=== PATIENT | female | born 1965 | race Caucasian/White ===

== ENCOUNTER 2017-08-24 15:27 | Observation (INO) | payer OTHER ==
[~2017-08-24] VITALS: Ht 162.6 cm; Wt 62.2 kg
[2017-08-24 15:33] VITALS: BP 175/86; PULSE 70; RESP 18; TEMP 98; O2SAT 100
[2017-08-24 16:21] LABS: BICARBONATE 29.1 MEQ/L (21.0-32.0); BLOOD UREA NITROGEN 15 MG/DL (7-18); CHLORIDE 104 MEQ/L (98-107); CREATININE 0.96 MG/DL (0.50-1.00); GLOMERULAR FILTRATION RATE 61 ML/MIN (>89); GLUCOSE,RANDOM 169 MG/DL (74-106); SODIUM (NA) 141 MEQ/L (136-145)
[2017-08-24 16:24] LABS: TROPONIN I LESS THAN 0.02 NG/ML (0.02-0.05)
[2017-08-24 16:28] LABS: AUTOMATED NEUTROPHIL # 5.9 TH/MM3 (1.8-7.7); BASOPHIL # 0.1 TH/MM3 (0-0.2); BASOPHIL % 0.9 % (0.0-2.0); EOSINOPHIL # 0.1 TH/MM3 (0-0.4); EOSINOPHIL % 1.5 % (0.0-4.0); HEMOGLOBIN 14.4 GM/DL (11.6-15.3); LYMPH % 25.6 % (9.0-44.0); LYMPHOCYTE # 2.2 TH/MM3 (1.0-4.8); MEAN CELL VOLUME 91.3 FL (80.0-100.0); MEAN CORPUSCULAR HEMOGLOBIN 30.6 PG (27.0-34.0); MEAN CORPUSCULAR HGB CONC 33.6 % (32.0-36.0); MEAN PLATELET VOLUME 8.4 FL (7.0-11.0); MONO % 4.6 % (0.0-8.0); MONOCYTE # 0.4 TH/MM3 (0-0.9); NEUT % 67.4 % (16.0-70.0); PLATELET COUNT 266 TH/MM3 (150-450); RED BLOOD COUNT 4.71 MIL/MM3 (4.00-5.30); WHITE BLOOD COUNT 8.8 TH/MM3 (4.0-11.0)
[2017-08-24 16:33] VITALS: PULSE 65; RESP 16; O2SAT 100
[2017-08-24] MEDS ORDERED: POTASSIUM CHLORIDE 20 MEQ CONTROLLED RELEASE TAB PO ONE (16:45)
--- NOTE | 2017-08-24 16:48 | PD ---
HPI Chief Complaint: Chest Pain Time Seen by Provider: 15:55 Travel History International Travel<30 days: No Contact w/Intl Traveler<30days: No Traveled to known affect area: No History of Present Illness HPI Patient presents to the emergency department complaining of chest pain. States that on Monday she woke up and had left back pain and Monday went to her chest. States that yesterday started getting worse. Reporting feeling dizzy with movement because of the pain. She took 2 Advil on yesterday and this morning also use hot/cold pack, with some improvement today. States that she still has chest pain. Pain is described as being on the left side, moving from back to front, nonradiating, movement makes pain worse, better with rest, constant, states that her back always hurts on the right side but now it was on the left. She denies fever, chills, nausea, vomiting, cough, recent travel, lower extremity edema, but reports shortness of breath with pain. PFSH Past Medical History Cardiovascular Problems: Yes High Cholesterol: Yes Diminished Hearing: No Hypertension: Yes Tetanus Vaccination: Unknown ?: Not LMP: 08/15/17 Past Surgical History Surgical History: No Previous Surgery Social History Alcohol Use: No Tobacco Use: Yes Substance Use: No Allergies-Medications (Allergen,Severity, Reaction): Coded Allergies: No Known Allergies (Unverified , 08/24/17) Review of Systems Except as stated in HPI: all other systems reviewed are Neg Physical Exam Narrative GENERAL: No acute distress. SKIN: Focused skin assessment warm/dry. HEAD: Atraumatic. Normocephalic. EYES: Pupils equal and round. No scleral icterus. No injection or drainage. ENT: No nasal bleeding or discharge. Mucous membranes pink and moist. NECK: Trachea midline. No JVD. CARDIOVASCULAR: Regular rate and rhythm. Positive murmur. 2+ R/DP pulses bilat RESPIRATORY: No accessory muscle use. Clear to auscultation. Breath sounds equal bilaterally. GASTROINTESTINAL: Abdomen soft, non-tender, nondistended. Hepatic and splenic margins not palpable. MUSCULOSKELETAL: No obvious deformities. No clubbing. No cyanosis. No edema. NEUROLOGICAL: Awake and alert. No obvious cranial nerve deficits. Motor grossly within normal limits. Normal speech. PSYCHIATRIC: Appropriate mood and affect; insight and judgment normal. Data Data Last Documented VS Vital Signs Date Time Temp Pulse Resp B/P (MAP) Pulse Ox O2 Delivery O2 Flow Rate FiO2 08/24/17 18:38 65 16 149/86 (107) 100 Room Air 08/24/17 15:33 98.0 Orders Orders Electrocardiogram (08/24/17 15:36) Complete Blood Count With Diff (08/24/17 15:36) Basic Metabolic Panel (Bmp) (08/24/17 15:36) Ckmb (Isoenzyme) Profile (08/24/17 15:36) Troponin I (08/24/17 15:36) Chest, Pa & Lat (08/24/17 15:36) CKMB (08/24/17 15:49) CKMB% (08/24/17 15:49) Potassium Chloride (Kcl) (08/24/17 16:45) Aspirin (Aspirin) (08/24/17 17:30) Electrocardiogram (08/24/17 19:00) Troponin I (08/24/17 19:00) Cyclobenzaprine (Flexeril) (08/24/17 18:00) Labs Laboratory Tests Test 08/24/17 15:49 White Blood Count 8.8 TH/MM3 Red Blood Count 4.71 MIL/MM3 Hemoglobin 14.4 GM/DL Hematocrit 43.0 % Mean Corpuscular Volume 91.3 FL Mean Corpuscular Hemoglobin 30.6 PG Mean Corpuscular Hemoglobin Concent 33.6 % Red Cell Distribution Width 13.0 % Platelet Count 266 TH/MM3 Mean Platelet Volume 8.4 FL Neutrophils (%) (Auto) 67.4 % Lymphocytes (%) (Auto) 25.6 % Monocytes (%) (Auto) 4.6 % Eosinophils (%) (Auto) 1.5 % Basophils (%) (Auto) 0.9 % Neutrophils # (Auto) 5.9 TH/MM3 Lymphocytes # (Auto) 2.2 TH/MM3 Monocytes # (Auto) 0.4 TH/MM3 Eosinophils # (Auto) 0.1 TH/MM3 Basophils # (Auto) 0.1 TH/MM3 CBC Comment DIFF FINAL Differential Comment Blood Urea Nitrogen 15 MG/DL Creatinine 0.96 MG/DL Random Glucose 169 MG/DL Calcium Level 9.0 MG/DL Sodium Level 141 MEQ/L Potassium Level 3.3 MEQ/L Chloride Level 104 MEQ/L Carbon Dioxide Level 29.1 MEQ/L Anion Gap 8 MEQ/L Estimat Glomerular Filtration Rate 61 ML/MIN Total Creatine Kinase 153 U/L Creatine Kinase MB 0.6 NG/ML Troponin I LESS THAN 0.02 NG/ML MDM Medical Decision Making Medical Screen Exam Complete: Yes Emergency Medical Condition: Yes Interpretation(s) EKG: Sinus rhythm, rate 64, Labs: Potassium decreased and glucose increase; cardiac enzymes negative Last Impressions Chest X-Ray 08/24/17 1536 Signed Impressions: Service Date/Time: August 15:54 - CONCLUSION: No acute disease. Riki Cagle MD Differential Diagnosis ACS, musculoskeletal chest pain, costochondritis, referred back pain Narrative Course Patient presents to the emergency department with constant chest pain and left back pain since Monday. She is afebrile and slightly hypertensive at 175/86. Will check EKG, chest x-ray, labs. Patient given 40 mEQ potassium p.o. 1730: Patient without chest pain. Ordered 2nd troponin and ECG at 1900 (3 hrs from first). Also will give patient ASA 325mg po. Bilat UE blood pressures: R arm 175/94 and L arm 159/94. 1751: Patient c/o back spasms, will give flexeril 5mg po. 1900: Patient signed out to Dr. Rodriguez and has repeat troponin and ECG at 1900. Final dispo per Dr. Rodriguez. Diagnosis Primary Impression: Chest pain Additional Impression: Hypokalemia Keysha Hatch MD August 24, 2017 16:48
--- NOTE | 2017-08-24 17:08 | RADRPT ---
EXAM DATE/TIME: 08/24/2017 15:54 [facility] COMPARISON: No previous studies available for comparison. INDICATIONS : Chest pain, mid center chest MEDICAL HISTORY : Hypertension. SURGICAL HISTORY : None. ENCOUNTER: Initial ACUITY: 4 - 6 days PAIN SCORE: 8/10 LOCATION: chest FINDINGS: PA and lateral views of the chest demonstrate the lungs to be symmetrically aerated without evidence of mass, infiltrate or effusion. The cardiomediastinal contours are unremarkable. Osseous structure s are intact. CONCLUSION: No acute disease. Riki Cagle MD on August 24, 2017 at 17:06 Board Certified Radiologist. This report was verified electronically.
[2017-08-24] MEDS ORDERED: ASPIRIN 325 MG TAB PO ONE (17:30)
[2017-08-24] MEDS ORDERED: CYCLOBENZAPRINE HCL 10 MG TAB PO ONE (18:00)
[2017-08-24 18:38] VITALS: BP 149/86; PULSE 65; RESP 16; O2SAT 100
--- NOTE | 2017-08-24 19:02 | PD ---
Physical Exam Date Seen by Provider: August 24, 2017 Time Seen by Provider: 19:01 Narrative Accepted transfer of care from Dr. Hatch GENERAL: Well-developed well-nourished female in no acute distress no respiratory distress SKIN: Warm and dry. HEAD: Normocephalic. EYES: No scleral icterus. No injection or drainage. NECK: Supple, trachea midline. No JVD or lymphadenopathy. CARDIOVASCULAR: Regular rate and rhythm without murmurs, gallops, or rubs. RESPIRATORY: Breath sounds equal bilaterally. No accessory muscle use. Data Data Last Documented VS Vital Signs Date Time Temp Pulse Resp B/P (MAP) Pulse Ox O2 Delivery O2 Flow Rate FiO2 08/24/17 18:38 65 16 149/86 (107) 100 Room Air 08/24/17 15:33 98.0 Orders Orders Electrocardiogram (08/24/17 15:36) Complete Blood Count With Diff (08/24/17 15:36) Basic Metabolic Panel (Bmp) (08/24/17 15:36) Ckmb (Isoenzyme) Profile (08/24/17 15:36) Troponin I (08/24/17 15:36) Chest, Pa & Lat (08/24/17 15:36) CKMB (08/24/17 15:49) CKMB% (08/24/17 15:49) Potassium Chloride (Kcl) (08/24/17 16:45) Aspirin (Aspirin) (08/24/17 17:30) Electrocardiogram (08/24/17 19:00) Troponin I (08/24/17 19:00) Cyclobenzaprine (Flexeril) (08/24/17 18:00) D-Dimer (08/24/17 21:09) Admit Order (Ed Use Only) (08/24/17 ) High Lift Operator / Telemetry DARIAN.Q8H (08/24/17 22:05) Diet Heart Healthy (08/25/17 Breakfast) Activity Oob With Assistance (08/24/17 22:05) Notify Dr: Other (08/24/17 22:05) Activity Bed Rest With Brp (08/24/17 22:05) Vital Signs (Adult) Q4H (08/24/17 22:05) Cardiac Rhythm .As Directed (08/24/17 22:05) Notify Dr: Other .PRN (08/24/17 22:05) Notify Parameters (08/24/17 22:05) Resp Oxygen Nasal Cannula (08/24/17 ) Ckmb (Isoenzyme) Profile (08/24/17 23:05) Troponin I (08/24/17 23:05) Electrocardiogram (08/24/17 23:05) ^ Obtain (08/24/17 22:05) Sodium Chloride 0.9% Flush (Ns Flush) (08/24/17 22:15) Sodium Chloride 0.9% Flush (Ns Flush) (08/25/17 09:00) Ondansetron Inj (Zofran Inj) (08/24/17 22:15) Nitroglycerin Sl (Nitrostat Sl) (08/24/17 22:15) Aspirin (Aspirin) (08/25/17 09:00) Alprazolam (Xanax) (08/24/17 22:15) High Lift Operator / Telemetry DARIAN.Q8H (08/24/17 22:05) Labs Laboratory Tests Test 08/24/17 15:49 08/24/17 20:10 08/24/17 21:20 White Blood Count 8.8 TH/MM3 Red Blood Count 4.71 MIL/MM3 Hemoglobin 14.4 GM/DL Hematocrit 43.0 % Mean Corpuscular Volume 91.3 FL Mean Corpuscular Hemoglobin 30.6 PG Mean Corpuscular Hemoglobin Concent 33.6 % Red Cell Distribution Width 13.0 % Platelet Count 266 TH/MM3 Mean Platelet Volume 8.4 FL Neutrophils (%) (Auto) 67.4 % Lymphocytes (%) (Auto) 25.6 % Monocytes (%) (Auto) 4.6 % Eosinophils (%) (Auto) 1.5 % Basophils (%) (Auto) 0.9 % Neutrophils # (Auto) 5.9 TH/MM3 Lymphocytes # (Auto) 2.2 TH/MM3 Monocytes # (Auto) 0.4 TH/MM3 Eosinophils # (Auto) 0.1 TH/MM3 Basophils # (Auto) 0.1 TH/MM3 CBC Comment DIFF FINAL Differential Comment Blood Urea Nitrogen 15 MG/DL Creatinine 0.96 MG/DL Random Glucose 169 MG/DL Calcium Level 9.0 MG/DL Sodium Level 141 MEQ/L Potassium Level 3.3 MEQ/L Chloride Level 104 MEQ/L Carbon Dioxide Level 29.1 MEQ/L Anion Gap 8 MEQ/L Estimat Glomerular Filtration Rate 61 ML/MIN Total Creatine Kinase 153 U/L Creatine Kinase MB 0.6 NG/ML Troponin I LESS THAN 0.02 NG/ML LESS THAN 0.02 NG/ML [facility] Medical Record Reviewed: Yes Supervised Visit with MARK: No Interpretation(s) Troponin I: Less than 0.02, not elevated Troponin I #2: Less than 0.02, not elevated EKG normal sinus rhythm rate 59 nonspecific T-wave septally no acute ST elevation Last Impressions Chest X-Ray 08/24/17 1536 Signed Impressions: Service Date/Time: August 15:54 - CONCLUSION: No acute disease. Riki Cagle MD CBC & BMP Diagram 08/24/17 15:49 Calcium Level 9.0 Vital Signs Date Time Temp Pulse Resp B/P (MAP) Pulse Ox O2 Delivery O2 Flow Rate FiO2 08/24/17 18:38 65 16 149/86 (107) 100 Room Air 08/24/17 16:33 65 16 100 Room Air 08/24/17 16:33 63 100 08/24/17 15:33 98.0 70 18 175/86 (115) 100 Differential Diagnosis Accepted transfer of care from Dr. Maciel; please refer to her dictation Narrative Course Accepted transfer of care from Dr. Maciel; for follow-up of pending labs and patient disposition Risk factor for chest pain/CAD: Female age 52 history of hypertension history of dyslipidemia and strong family history of CAD/ME Second set of cardiac enzymes troponin I less than 0.02, and evaluated EKG shows no acute ST elevation injury pattern Patient's case discussed in detail and her labs with the patient desirous of observation to chest pain center as prior to moving from the [facility] due to her strong family history of CAD patient had been undergoing stress test annually and has not had a stress test since 2016. Therefore will place as observation patient to chest pain center. Diagnosis Primary Impression: Chest pain Additional Impression: Hypokalemia Yvonne Rodriguez MD August 24, 2017 19:01
[2017-08-24] MEDS ORDERED: SODIUM CHLORIDE 0.9% FLUSH 10 ML FLUSH IV FLUSH PRN (22:15)
[2017-08-24] MEDS ORDERED: NITROGLYCERIN 0.4 MG SL 25 TABS/BTL SL PRN (22:15)
[2017-08-24] MEDS ORDERED: ONDANSETRON HCL 4 MG/2 ML VIAL IV PUSH PRN (22:15)
[2017-08-24] MEDS ORDERED: ALPRAZolam 0.25 MG TAB PO PRN (22:15)
[2017-08-24 22:53] VITALS: BP_SYST 152; BP_SYST 160; BP_DIAS 94; PULSE 55; RESP 16; TEMP 97.9; O2SAT 99
[2017-08-25] VITALS (7 sets, daily range): BP systolic 130–157; BP diastolic 86–97; PULSE 53–66; RESP 16–18; TEMP 97.6–98.7; O2SAT 97–98
[2017-08-25 00:39] LABS: TROPONIN I LESS THAN 0.02 NG/ML (0.02-0.05)
--- NOTE | 2017-08-25 07:26 | HHI.HP ---
HPI Primary Care Physician Sb Jenkins MD Chief Complaint Chest pain History of Present Illness 52-year-old female with history of hypertension hyperlipidemia presents emergency room for further evaluation of chest pain. Onset 2 weeks. Monday discomfort became worse. Location mid back with radiation to substernal chest area. Severity has been mild to moderate. Duration constant. No associated symptoms of nausea, vomiting, dyspnea, or diaphoresis. Precipitating factors movement and taking deep breaths. Since Monday alternating between placing ice and heat to affected areas and taking Advil reports some relief. Due to worsening discomfort and prolonged nature of discomfort, came to ER for further evaluation of chest pain. No recent injury or trauma. Review of Systems General: No fatigue,weakness, fever, chills, or recent illness. HEENT: No THAKUR, no vision changes CV: Continues to have chest discomfort as stated above. No palpitations, intermittent leg pain, dizziness RESP: No SOB, cough, wheeze, or recent URI. GI: No nausea, vomiting, bowel changes, diarrhea, constipation, pain, or distention. No change in appetite, no unintentional weight gain or weight loss. : No dysuria, urgency, frequency EXT: No lower leg edema, no paraesthesias MS: No discomfort, injury, or change in ROM NEURO: No dizziness, difficulty with balance, LOC, or motor/sensory deficits PSYCH: No anxiety, depression SKIN: No rashes, no concerning lesions Past Family Social History Allergies: Coded Allergies: No Known Allergies (Unverified , 08/24/17) Past Medical History Hypertension, hyperlipidemia Reported Medications Reports taking blood pressure and hyperlipidemia medications, names unknown. Active Ordered Medications Current Medications Medications (Trade) Dose Ordered Sig/Sue Route Start Time Stop Time Status Last Admin (NS Flush) 2 ml UNSCH PRN IV FLUSH 08/24/17 22:15 (NS Flush) 2 ml BID IV FLUSH 08/25/17 09:00 (Zofran Inj) 4 mg Q6H PRN IV PUSH 08/24/17 22:15 (Nitrostat Sl) 0.4 mg Q5M PRN SL 08/24/17 22:15 (Aspirin) 325 mg DAILY PO 08/25/17 09:00 (Xanax) 0.25 mg Q8H PRN PO 08/24/17 22:15 Family History Noncontributory for early onset cardiovascular disease. Social History Known hypertension hyperlipidemia. No known coronary artery disease or diabetes. Lifelong non-smoker. Denies any alcohol use. . Works an office setting. 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 Past cardiac testing None Physical Exam Vital Signs Vital Signs Date Time Temp Pulse Resp B/P (MAP) Pulse Ox O2 Delivery O2 Flow Rate FiO2 08/25/17 07:02 97.8 53 18 157/88 (111) 97 08/25/17 05:55 21 08/25/17 04:16 97.6 58 16 153/97 (115) 97 08/25/17 04:00 57 08/25/17 01:00 97.6 54 16 157/86 (109) 98 08/24/17 22:53 97.9 55 16 152/94 (113) 99 08/24/17 18:38 65 16 149/86 (107) 100 Room Air 08/24/17 16:33 65 16 100 Room Air 08/24/17 16:33 63 100 08/24/17 15:33 98.0 70 18 175/86 (115) 100 Physical Exam GENERAL: Alert WN, WD, NAD, pleasant, female HEAD: NC, AT EYES: Sclera clear, conjunctiva without injection, pupils equal and round ENT: Mucous membranes pink and moist NECK: Supple, no masses, trachea midline CV: RRR, without murmur, rub, gallop, no JVD, S1-S2 no S3-S4. RESP: Clear lungs throughout bilateral, no crackles, wheeze, rhonchi, symmetrical chest rise, nonlabored, able to speak in full sentences ABD: Soft, NT, ND, no masses, positive bowel tones EXT: Pulses +2x4, no dependent edema MS: Normal tone x4 extremities, nontender, no obvious deformities, full range of motion NEURO: CN II through CN XII grossly intact, motor strength 5/5 PSYCH: A+O x3, pleasant affect, appropriate speech, mood, insight and judgment SKIN: Normal turgor, normal texture, no lesions, no rashes, brisk cap refill Laboratory Laboratory Tests Test 08/24/17 15:49 08/24/17 20:10 08/24/17 21:20 08/24/17 23:40 White Blood Count 8.8 Red Blood Count 4.71 Hemoglobin 14.4 Hematocrit 43.0 Mean Corpuscular Volume 91.3 Mean Corpuscular Hemoglobin 30.6 Mean Corpuscular Hemoglobin Concent 33.6 Red Cell Distribution Width 13.0 Platelet Count 266 Mean Platelet Volume 8.4 Neutrophils (%) (Auto) 67.4 Lymphocytes (%) (Auto) 25.6 Monocytes (%) (Auto) 4.6 Eosinophils (%) (Auto) 1.5 Basophils (%) (Auto) 0.9 Neutrophils # (Auto) 5.9 Lymphocytes # (Auto) 2.2 Monocytes # (Auto) 0.4 Eosinophils # (Auto) 0.1 Basophils # (Auto) 0.1 CBC Comment DIFF FINAL Differential Comment Blood Urea Nitrogen 15 Creatinine 0.96 Random Glucose 169 Calcium Level 9.0 Sodium Level 141 Potassium Level 3.3 Chloride Level 104 Carbon Dioxide Level 29.1 Anion Gap 8 Estimat Glomerular Filtration Rate 61 Total Creatine Kinase 153 162 Creatine Kinase MB 0.6 0.7 Troponin I LESS THAN 0.02 LESS THAN 0.02 LESS THAN 0.02 D-Dimer Quantitative (PE/DVT) 0.29 Result Diagram: 08/24/17 1549 08/24/17 1549 Imaging Last 48 hours Impressions Chest X-Ray 08/24/17 1536 Signed Impressions: Service Date/Time: August 15:54 - CONCLUSION: No acute disease. Riki Cagle MD Course EKG NSB, no st t segment changes Caprini VTE Risk Assessment Caprini VTE Risk Assessment: No/Low Risk (score <= 1) Caprini Risk Assessment Model Point Value = 1 Point Value = 2 Point Value = 3 Point Value = 5 Age 41-60 Minor surgery BMI > 25 kg/m2 Swollen legs Varicose veins or History of unexplained or recurrent spontaneous Oral contraceptives or hormone replacement Sepsis (< 1 month) Serious lung disease, including pneumonia (< 1 month) Abnormal pulmonary function Acute myocardial infarction Congestive heart failure (< 1 month) History of inflammatory bowel disease Medical patient at bed rest Age 61-74 Arthroscopic surgery Major open surgery (> 45 min) Laparoscopic surgery (> 45 min) Malignancy Confined to bed (> 72 hours) Immobilizing plaster cast Central venous access Age >= 75 History of VTE Family history of VTE Factor V Leiden Prothrombin [id number] Lupus anticoagulant Anticardiolipin antibodies Elevated serum homocysteine Heparin-induced thrombocytopenia Other congenital or acquired thrombophilia Stroke (< 1 month) Elective arthroplasty Hip, pelvis, or leg fracture Acute spinal cord injury (< 1 month) Prophylaxis Regimen Total Risk Factor Score Risk Level Prophylaxis Regimen 0-1 Low Early ambulation 2 Moderate Order ONE of the following: *Sequential Compression Device (SCD) *Heparin 5000 units SQ BID 3-4 Higher Order ONE of the following medications: *Heparin 5000 units SQ TID *Enoxaparin/Lovenox 40 mg SQ daily (WT < 150 kg, CrCl > 30 mL/min) *Enoxaparin/Lovenox 30 mg SQ daily (WT < 150 kg, CrCl > 10-29 mL/min) *Enoxaparin/Lovenox 30 mg SQ BID (WT < 150 kg, CrCl > 30 mL/min) AND/OR *Sequential Compression Device (SCD) 5 or more Highest Order ONE of the following medications: *Heparin 5000 units SQ TID (Preferred with Epidurals) *Enoxaparin/Lovenox 40 mg SQ daily (WT < 150 kg, CrCl > 30 mL/min) *Enoxaparin/Lovenox 30 mg SQ daily (WT < 150 kg, CrCl > 10-29 mL/min) *Enoxaparin/Lovenox 30 mg SQ BID (WT < 150 kg, CrCl > 30 mL/min) AND *Sequential Compression Device (SCD) Assessment and Plan Assessment and Plan Musculoskeletal chest wall pain-no chest pain center. Ruled out with 3 sets of EKGs, cardiac enzymes, monitor on telemetry overnight. Seen and evaluated by Dr. Cesar Webster. With exercise stress test. If unremarkable, plans will be to discharge home with follow-up with PCP. Encouraged continued use to work using warm heat to affected area and [id number] NSAIDs such as Aleve or Motrin. Verbalized understanding and agreeable to plan of care. Upon discharge she has been instructed to continue her antihypertensive and statin therapy, medications not updated in EMR. Namita Sandoval August 25, 2017 07:26
[2017-08-25] MEDS ORDERED: NITROGLYCERIN 0.4 MG SL 25 TABS/BTL SL PRN (08:30)
[2017-08-25] MEDS ORDERED: SODIUM CHLORIDE 0.9% FLUSH 10 ML FLUSH IV FLUSH PRN (08:30)
[2017-08-25] MEDS ORDERED: ACETAMINOPHEN 500 MG CPLT PO PRN (08:30)
[2017-08-25] MEDS ORDERED: ASPIRIN 325 MG TAB PO SCH ×2 (09:00)
[2017-08-25] MEDS ORDERED: SODIUM CHLORIDE 0.9% FLUSH 10 ML FLUSH IV FLUSH SCH ×2 (09:00)
--- NOTE | 2017-08-25 10:16 | HHI.DCPOC ---
Discharge Care Plan Diagnosis: (1) Musculoskeletal chest pain Goals to Promote Your Health * To prevent worsening of your condition and complications * To maintain your health at the optimal level Directions to Meet Your Goals Take your medications as prescribed Follow your dietary instruction Follow activity as directed Keep your appointments as scheduled Take your immunizations and boosters as scheduled If your symptoms worsen call your PCP, if no PCP go to Urgent Care Center or Emergency Room Smoking is Dangerous to Your Health. Avoid second hand smoke Call the 24-hour hour crisis hotline for domestic abuse at Namita Sandoval August 25, 2017 10:16
[2017-08-25] MEDS ORDERED: IBUP-232 PO (10:17)
[2017-08-25] MEDS ORDERED: CYCL5TAB PO (10:26)
--- NOTE | 2017-08-25 14:05 | EKG ---
Date Performed: 08/24/2017 Time Performed: 23:11:23 PTAGE: 52 years EKG: SINUS BRADYCARDIA PREVIOUS TRACING : 08/24/2017 20.06 Since previous tracing, no significant change noted DOCTOR: Cesar Webster Interpretating Date/Time 08/25/2017 14:04:23
--- NOTE | 2017-08-25 14:08 | TR ---
Date Performed: 08/25/2017 Time Performed: 08:44:19 DOCTOR: Cesar Webster DRUG LIST: CLINICAL HISTORY: REASON FOR TEST: Chest pain REASON FOR ENDING: OBSERVATION: CONCLUSION: Gerald protocol completed. Stopped sec to exceeding target heart rate and leg fatigue . Maximum WT=008 Target HR Achieved=91.0% Maximum JK=163/82 Total Exercise Time=8:02. No reprod chest discomfort. No ectopy. Inferior J point depression with upsloping st segments. Normal bp response. G ood exercise tolerance. Recovery quick and unremarkable. COMMENTS: Patient exercised using the Gerald protocol. No electrocardiographic changes were seen to suggest ischemia. Hemodynamic response to exercise was normal. No significant arrhythmia was prese nt.
--- NOTE | 2017-08-26 08:37 | EKG ---
Date Performed: 08/24/2017 Time Performed: 20:06:27 PTAGE: 52 years EKG: SINUS BRADYCARDIA BORDERLINE ECG PREVIOUS TRACING : 08/24/2017 15.41 DOCTOR: Alexander Kingsley Interpretating Date/Time 08/26/2017 08:34:08
--- NOTE | 2017-08-26 08:42 | EKG ---
Date Performed: 08/24/2017 Time Performed: 15:41:32 PTAGE: 52 years EKG: Sinus rhythm NORMAL ECG NO PREVIOUS TRACING DOCTOR: Alexander Kingsley Interpretating Date/Time 08/26/2017 08:39:46
== END 2017-08-25 12:17 | disposition home or self-care (01) ==
LOC: NEPC 15:27 → NEDA 22:08 → NEPFCDU 22:46
DX: R07.89 Other chest pain (principal); M62.830 Muscle spasm of back; E87.6 Hypokalemia; I10 Essential (primary) hypertension; E78.5 Hyperlipidemia, unspecified; M54.9 Dorsalgia, unspecified; R42 Dizziness and giddiness; R06.02 Shortness of breath; E78.00 Pure hypercholesterolemia, unspecified; Z72.0 Tobacco use
CPT/HCPCS: 71046; 80048; 82550; 82552; 84484; 85025; 85379; 93005; 93017; 99285; G0378